=== PATIENT | female | born 1950 | race Caucasian/White ===

== ENCOUNTER 2018-01-22 08:35 | Day surgery (SDC) | payer OTHER ==
--- NOTE | 2018-01-22 09:07 | PROC ---
Endoscopy Procedure Endoscopy procedure completed. Please see scanned procedure report.
[2018-01-22 09:12] VITALS: BMI 30.5
[2018-01-22] MEDS ORDERED: PROPOFOL 20 ML ONE ×3 (09:25→09:26)
[2018-01-22 10:38] VITALS: TEMP 97.4
[2018-01-22 11:38] VITALS: BP 130/75; PULSE 84
--- NOTE | 2018-01-23 13:23 | PATH ---
Surgical Pathology Report Patient Name: KENNETH BRAVO [facility]. Rec. #: [id number] /Age/Gender: 1950 (Age: 67) / F Account: [id number] Location: [facility]-ENDOSCOPY Taken: 01/22/2018 Received: 01/22/2018 Reported: 01/23/2018 Physicians: Diallo Dickerson M.D. Specimen(s) Received A: BX 2ND PORTION DUODENUM B: BX ANTRUM/ BODY C: BX GE JUNCTION Clinical History Preoperative diagnosis: GI bleed Postoperative diagnosis: Esophagitis, gastritis, internal hemorrhoids Final Diagnosis A. DUODENUM, SECOND PORTION, BIOPSY: DUODENAL MUCOSA WITH NO PATHOLOGIC CHANGES. NO HISTOLOGIC EVIDENCE OF GLUTEN SENSITIVE ENTEROPATHY (CELIAC SPRUE) IDENTIFIED. B. STOMACH, ANTRUM AND BODY, BIOPSY: GASTRIC MUCOSA WITH NO SIGNIFICANT PATHOLOGIC CHANGES. IMMUNOSTAIN FOR H. PYLORI IS NEGATIVE. C. GE JUNCTION, BIOPSY: SQUAMOUS AND GASTRIC MUCOSA WITH CHRONIC INFLAMMATION AND PAPILLOMATOSIS WITH INTRAEPITHELIAL EOSINOPHILS CONSISTENT WITH REFLUX ESOPHAGITIS. NO INTESTINAL METAPLASIA IDENTIFIED (NO WEST'S IDENTIFIED). Electronically Signed Desean Thomas M.D. Gross Description A. Received in formalin, labeled "biopsy second portion of duodenum" are 2 bellamy, irregular portions of soft tissue averaging 0.2 cm. in greatest dimension. The specimens are submitted in toto in one cassette. B. Received in formalin, labeled "biopsy antrum/body" are 2 bellamy, irregular portions of soft tissue measuring 0.2 and 0.3 cm. in greatest dimension. The specimens are submitted in toto in one cassette. C. Received in formalin, labeled "biopsy GE junction" are 3 bellamy, irregular portions of soft tissue ranging from 0.1-0.4 cm. in greatest dimension. The specimens are submitted in toto in one cassette. DL/01/22/2018 saudi01/22/2018
== END 2018-01-22 11:38 | disposition home or self-care (01) ==
LOC: JASU-ENDO 08:35
PROVIDERS: ATTEND Internal Medicine Gastroenterology
PROC: 0DB98ZX Excision of Duodenum, Via Natural or Artificial Opening Endoscopic, Diagnostic (ICD-10-PCS; 2018-01-22)
PROC: 0DB68ZX Excision of Stomach, Via Natural or Artificial Opening Endoscopic, Diagnostic (ICD-10-PCS; 2018-01-22)
PROC: 0DB48ZX Excision of Esophagogastric Junction, Via Natural or Artificial Opening Endoscopic, Diagnostic (ICD-10-PCS; 2018-01-22)
PROC: 0DJD8ZZ Inspection of Lower Intestinal Tract, Via Natural or Artificial Opening Endoscopic (ICD-10-PCS; principal; 2018-01-22 09:00)
DX: K92.1 Melena (principal); K57.30 Diverticulosis of large intestine without perforation or abscess without bleeding; K64.8 Other hemorrhoids; K21.0 Gastro-esophageal reflux disease with esophagitis; K44.9 Diaphragmatic hernia without obstruction or gangrene

== ENCOUNTER 2019-06-30 11:17 | Emergency (ER) | payer OTHER ==
--- NOTE | 2019-06-30 11:43 | PDOC ---
History of Present Illness - General Chief Complaint: Pain, Acute Stated Complaint: LEFT FLANK PAIN Time Seen by Provider: 06/30/19 11:32 - History of Present Illness Initial Comments: 06/30/19 12:58 Chief complaint: Pain in the left flank and left upper quadrant History of present illness: Patient awoke this morning with severe pain beginning in the area of the left upper back and left flank and radiating around the flank to the left upper quadrant. Associated mild nausea, retching but no vomiting. Review of systems: No lower abdominal pain, diarrhea, hematemesis, melena, bloody stool, anterior chest pain, shortness of breath, urinary tract symptoms including dysuria, frequency, urgency, hesitancy, or hematuria, no vaginal bleeding or discharge. No visual or focal neurologic symptoms or unsteadiness of gait. 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 Cholecystectomy. Admits [id number] diabetes, elevated cholesterol, high blood pressure, hypothyroidism, depression, GERD Medications: Enalapril, metoprolol, levothyroxine, Protonix, Crestor, Farxiga, Sitagliptin/metformin Social history: , stable home and family, no tobacco alcohol or nonprescription drugs Family history reviewed and noncontributory Physical exam: Alert and oriented well-developed well-nourished moderate distress due to pain described above, but cooperative Afebrile, vital signs normal except for mildly elevated blood pressure PERRLA, fundi benign, ENT clear Neck supple without bruit mass or nodes Chest clear to P&A, full breath sounds bilaterally No chest wall or rib cage point tenderness or deformity CV S1 and S2 normal without murmur or gallop pulses full and symmetric no JVD or edema no bruits Abdomen nondistended. Bowel sounds normal. Soft without masses tenderness organomegaly. The spleen is not palpable. Extremities no CCE Skin clear, no rash, adequate turgor and wet mucous membranes Neurological C2 to 12 intact. Strength full and symmetric. No focal sensory or motor deficits. Gait stable and unimpaired Impression: Sudden onset of severe left flank and left upper quadrant pain, most likely possibilities are renal colic, hemorrhage or infarction into a disease spleen, or early zoster. Plan: CBC and chemistries, urinalysis, CT and further medical/surgical management depending on results. 06/30/19 13:08 Past History - Past Medical History Allergies/Adverse Reactions: Allergies Allergy/AdvReac Type Severity Reaction Status Date / Time No Known Allergies Allergy Verified 06/30/19 11:51 Home Medications: Ambulatory Orders Dapagliflozin Propanediol [Farxiga] 5 mg PO DAILY 06/30/19 Duloxetine HCl [Cymbalta -] 60 mg PO DAILY 06/30/19 Enalapril Maleate [Vasotec -] 5 mg PO DAILY 06/30/19 Levothyroxine Sodium [Levo-T] 100 mcg PO DAILY 06/30/19 Metoprolol Succinate [Toprol Xl] 50 mg PO DAILY 06/30/19 Oxycodone HCl/Acetaminophen [Percocet 5-325 mg Tablet] 1 - 2 tab PO Q6H PRN #12 tab MDD 6 06/30/19 Pantoprazole Sodium [Protonix] 40 mg PO DAILY 06/30/19 Rosuvastatin [Crestor -] 10 mg PO DAILY 06/30/19 Sitagliptin Phos/Metformin HCl [Janumet Xr 100-1,000 mg Tablet] 1 tab PO DAILY 06/30/19 Anemia: No Asthma: No Cancer: Yes (SPLEEN) Cardiac Disorders: No CVA: No COPD: No CHF: No Dementia: No Diabetes: Yes GI Disorders: (COLON POLYPS) Disorders: No HTN: Yes Hypercholesterolemia: Yes Liver Disease: No Seizures: No Thyroid Disease: No - Surgical History Abdominal Surgery: No Appendectomy: No Cardiac Surgery: No Cholecystectomy: Yes Lung Surgery: No Neurologic Surgery: No Orthopedic Surgery: Yes (BACK SURGERY, RIGHT SHOULDER, RIGHT KNEE SURGERY) - Suicide/Smoking/Psychosocial Hx Smoking History: Never smoked Have you smoked in the past 12 months: No If you are a former smoker, when did you quit?: 1997 Hx Alcohol Use: No Drug/Substance Use Hx: No Substance Use Type: None Hx Substance Use Treatment: No *Physical Exam - Vital Signs Last Vital Signs Temp Pulse Resp BP Pulse Ox 98.3 F 82 18 165/95 97 06/30/19 11:17 06/30/19 11:17 06/30/19 11:17 06/30/19 11:17 06/30/19 11:17 ED Treatment Course - LABORATORY CBC & Chemistry Diagram: 06/30/19 11:25 06/30/19 12:04 Medical Decision Making - Medical Decision Making 06/30/19 13:06 CBC is normal. Specifically, no anemia or other evidence of blood loss Chemistries without significant abnormalities Urinalysis shows no blood, only 3+ glucose CT reveals fatty liver and normal spleen. No sign of hemorrhage. No sign of any other pelvic disease. 06/30/19 13:08 Pain is much improved. She appears to be comfortable and moving around well. Etiology of the pain is uncertain. It does not appear to be due to an intra- abdominal process or renal colic. May be either musculoskeletal or early zoster infection Patient has an appointment with her doctor at [facility] tomorrow. She is instructed to take the results of all her tests and discuss her pain at that time. Return to ER if worse. Analgesics as needed. Fully ambulatory and in no severe pain or other distress at discharge with her to follow-up as scheduled. *DC/Admit/Observation/Transfer Diagnosis at time of Disposition: Abdominal pain Qualifiers: Abdominal location: left upper quadrant Qualified Code(s): R10.12 - Left upper quadrant pain - Discharge Dispostion Disposition: HOME Condition at time of disposition: Improved Decision to Admit order: No - Prescriptions Prescriptions: Oxycodone HCl/Acetaminophen [Percocet 5-325 mg Tablet] 1 - 2 tab PO Q6H PRN #12 tab MDD 6 PRN Reason: Severe Pain - Referrals - Patient Instructions Printed Discharge Instructions: DI for Abdominal Pain-Adult Additional Instructions: See your doctor as scheduled tomorrow. Take your test results and discuss. Pain medication as needed Return to ER if pain is worse or additional symptoms develop. - Post Discharge Activity
[2019-06-30 11:45] VITALS: TEMP 98.3; BMI 30.4
[2019-06-30] MEDS ORDERED: morphine SULFATE 4 MG/ML VIAL ONE (11:45)
[2019-06-30] MEDS ORDERED: ONDANSETRON 4 MG/2 ML VIAL ONE (11:45)
[2019-06-30] MEDS ORDERED: ONDANSETRON 4 MG/2 ML VIAL IVPB ONE (11:45)
[2019-06-30] MEDS ORDERED: morphine CARPU-JECT 4 MG/1 ML DISP.SYRIN IVPUSH ONE (11:46)
[2019-06-30 11:55] LABS: BASO % 0.3 % (0-2.0); EOS % 1.9 % (0-4.5); HEMATOCRIT 43.6 % (32.4-45.2); HEMOGLOBIN 14.7 GM/dl (10.7-15.3); LYMPH % 20.8 % (8-40); MCH 31.4 pg (25.7-33.7); MCHC 33.7 g/dl (32.0-36.0); MEAN CELL VOLUME 93.1 fl (80-96); MEAN PLT VOLUME 7.8 fl (7.5-11.1); MONO % 8.3 % (3.8-10.2); NEUT % 68.7 % (42.8-82.8); PLATELET COUNT 323 K/MM3 (134-434); RBC 4.68 M/mm3 (3.60-5.2); RDW 12.4 % (11.6-15.6); WHITE BLOOD COUNT 7.9 K/mm3 (4.0-10.8)
[2019-06-30 12:48] LABS: ALBUMIN 4.3 g/dl (3.4-5.0); BILIRUBIN,TOTAL 0.7 mg/dl (0.2-1); CALCIUM 9.3 mg/dl (8.5-10); CREATININE 0.6 mg/dl (0.55-1.3); POTASSIUM 4.3 mmol/L (3.5-5.1); TOT PROT 6.7 g/dl (6.4-8.2)
[2019-06-30 13:18] VITALS: BP 128/84; PULSE 63
== END 2019-06-30 13:47 | disposition home or self-care (01) ==
LOC: FER 11:17
PROC: 3E033NZ Introduction of Analgesics, Hypnotics, Sedatives into Peripheral Vein, Percutaneous Approach (ICD-10-PCS; principal; 2019-06-30)
PROC: 3E033GC Introduction of Other Therapeutic Substance into Peripheral Vein, Percutaneous Approach (ICD-10-PCS; 2019-06-30)
DX: E78.00 Pure hypercholesterolemia, unspecified (principal); Z85.89 Personal history of malignant neoplasm of other organs and systems; Z87.891 Personal history of nicotine dependence
CPT/HCPCS: 36415; 74176-TC; 80053; 81003; 85025; 99283-25

== ENCOUNTER 2024-09-26 17:42 | Emergency (ER) | payer OTHER ==
[2024-09-26 18:17] VITALS: BP 149/87; PULSE 107; RESP 20; TEMP 97.5; BMI 25.7
== END 2024-09-26 19:16 | disposition home or self-care (01) ==
LOC: FER 17:42
DX: M25.552 Pain in left hip (principal); G89.29 Other chronic pain
CPT/HCPCS: 99283-25

== ENCOUNTER 2024-10-05 15:16 | Observation (INO) | payer OTHER ==
[2024-10-05] MEDS ORDERED: KETOROLAC TROMETHAMINE 15 MG/ML VIAL ONE (16:31)
[2024-10-05 16:36] LABS: HEMATOCRIT 42.3 % (32.4-45.2); HEMOGLOBIN 14.3 G/dL (10.7-15.3); MCH 31.9 pg (25.7-33.7); MCHC 33.9 g/dl (32.0-36.0); MEAN CELL VOLUME 94.1 fl (80-96); MEAN PLT VOLUME 7.3 fl (7.5-11.1); PLATELET COUNT 313.3 10^3/uL (134-434); RBC 4.49 10^6/uL (3.60-5.2); WHITE BLOOD COUNT 8.1 10^3/uL (4.0-10.8)
[2024-10-05] MEDS: morphine CARPU-JECT 2 MG/1 ML DISP.SYRIN IVPUSH ONE (16:37)
[2024-10-05] MEDS: KETOROLAC TROMETHAMINE 15 MG/ML VIAL IVPUSH ONE (16:38)
[2024-10-05 16:50] LABS: INR 0.99 (0.83-1.09); PROTHROMBIN TIME (PATIENT) 11.3 SEC (9.7-13.0)
[2024-10-05 16:52] LABS: ACTIVATED PTT 37.7 SECONDS (25.2-36.5)
[2024-10-05 16:58] LABS: PLATELET ESTIMATE ADEQUATE
[2024-10-05 17:00] LABS: ALBUMIN 4.8 g/dl (3.4-5.0); BILIRUBIN,TOTAL 0.6 mg/dl (0.2-1); CALCIUM 10.5 mg/dl (8.5-10.1); CREATININE 0.8 mg/dl (0.6-1.3); POTASSIUM 4.3 mmol/L (3.5-5.1); TOT PROT 6.8 g/dl (6.4-8.2)
[2024-10-05 17:21] LABS: ERYTHROCYTE SEDIMENTATION RATE 16 mm/hr (0-30)
[2024-10-05] MEDS ORDERED: DOCUSATE SODIUM 100 MG CAPSULE (FP) PO PRN (20:12)
[2024-10-05 21:09] VITALS: BMI 27.9
[2024-10-05] MEDS: KETOROLAC TROMETHAMINE 15 MG/ML VIAL IVPUSH PRN (23:34)
[2024-10-05] MEDS: INSULIN ASPART SLIDING SCALE (NOVOLOG) 1 VIAL SQ SCH (23:39)
[2024-10-06] MEDS ORDERED: oxyCODONE HCL 5 MG TABLET PO PRN (07:49)
[2024-10-06] MEDS: LEVOTHYROXINE NA 100 MCG TABLET (FP) PO SCH (07:58)
[2024-10-06] MEDS: CYCLOBENZAPRINE HCL 5 MG TABLET PO SCH (07:58)
[2024-10-06 09:15] LABS: CREATININE 0.7 mg/dl (0.6-1.3); POTASSIUM 4.7 mmol/L (3.5-5.1)
[2024-10-06] MEDS: LIDOCAINE 5% TOPICAL PATCH TP SCH (09:40)
[2024-10-06] MEDS: buPROPion HCL 75 MG TABLET PO SCH (09:40)
[2024-10-06] MEDS: ENALAPRIL MALEATE 5 MG TABLET PO SCH (09:40)
[2024-10-06] MEDS: DULoxetine HCL 30 MG CAPSULE.DR PO SCH (09:40)
[2024-10-06] MEDS: NAPROXEN 500 MG TABLET PO SCH (12:20)
[2024-10-06] MEDS: oxyCODONE HCL 5 MG TABLET PO PRN (12:20)
[2024-10-06] MEDS: GABAPENTIN 100 MG CAPSULE PO SCH (14:36)
[2024-10-06] MEDS: LIDOCAINE PATCH REMOVAL MC SCH (21:06)
[2024-10-06 22:30] VITALS: RESP 18
[2024-10-07] MEDS: methylPREDNISolone 4 MG TABLET PO ONE (08:02)
[2024-10-07 08:06] LABS: CALCIUM 9.8 mg/dl (8.5-10.1); CREATININE 0.7 mg/dl (0.6-1.3); POTASSIUM 4.5 mmol/L (3.5-5.1)
[2024-10-07 09:23] VITALS: BP 119/71; PULSE 64; TEMP 98.8
[2024-10-07] MEDS: PANTOPRAZOLE 40 MG TABLET PO SCH (09:27)
[2024-10-07] MEDS: ENOXAPARIN NA (PORCINE) 40 MG/0.4 ML DISP.SYRIN SQ SCH (09:28)
[2024-10-07] MEDS: POLYETHYLENE GLYCOL (HEALTHYLAX) 3350 17 GM PACKET PO SCH (09:44)
[2024-10-07 10:02] LABS: BASO % 1.5 % (0-2.0); EOS % 2.5 % (0-4.5); HEMATOCRIT 38.2 % (32.4-45.2); HEMOGLOBIN 13.4 GM/dL (10.7-15.3); LYMPH % 32.4 % (8-40); MCH 32.9 pg (25.7-33.7); MCHC 35.2 g/dl (32.0-36.0); MEAN CELL VOLUME 93.6 fl (80-96); MONO % 6.5 % (3.8-10.2); NEUT % 57.1 % (42.8-82.8); PLATELET COUNT 296 10^3/uL (134-434); RBC 4.08 M/mm3 (3.60-5.2); RDW 13.6 % (11.6-15.6); WHITE BLOOD COUNT 4.6 K/mm3 (4.0-10.0)
[2024-10-07] MEDS ORDERED: SENNOSIDES 8.6MG TABLET (FP) PO SCH (22:00)
== END 2024-10-07 12:50 | disposition home or self-care (01) ==
LOC: FER 15:16 → FM/S 20:00
PROVIDERS: ADMIT Internal Medicine; ATTEND Internal Medicine
PROC: 3E0333Z Introduction of Anti-inflammatory into Peripheral Vein, Percutaneous Approach (ICD-10-PCS; principal; 2024-10-05)
PROC: 3E033NZ Introduction of Analgesics, Hypnotics, Sedatives into Peripheral Vein, Percutaneous Approach (ICD-10-PCS; 2024-10-05)
DX: M25.551 Pain in right hip (principal); M25.552 Pain in left hip; G89.29 Other chronic pain; E03.9 Hypothyroidism, unspecified; I10 Essential (primary) hypertension; E11.9 Type 2 diabetes mellitus without complications; F32.A Depression, unspecified; Z85.89 Personal history of malignant neoplasm of other organs and systems
CPT/HCPCS: 0241U-QW; 36415; 72100-TC-FY; 80048; 80053; 82962; 85025; 85027; 85610; 85651; 85730; 86140; 86850; 86900; 86901; 96374; 96375; 96376; 97116-GP; 97162-GP; 99285-25; G0378; G0480